=== PATIENT | male | born 1960 | race Caucasian/White ===

== ENCOUNTER → 2025-06-16 | Outpatient (CLI) | payer BC, OTHER, SELFPAY ==
[2025-06-16 11:23] LABS: Prostate Specific Antigen 4.85 ng/mL (0-4.00)
== END | disposition home or self-care (01) ==
LOC: COPL 08:47
PROVIDERS: PCP Internal Medicine; Referring Provider Urology; Visit Provider Urology
DX: N40.1 Benign prostatic hyperplasia with lower urinary tract symptoms (principal)
CPT/HCPCS: 36415; 84153

== ENCOUNTER → 2025-06-22 | Outpatient (BNVA) | payer BC, OTHER, SELFPAY | END | disposition home or self-care (01) | PROVIDERS: PCP Internal Medicine; Referring Provider Internal Medicine; Visit Provider Physician Assistant | DX: N40.1 Benign prostatic hyperplasia with lower urinary tract symptoms (principal); R97.20 Elevated prostate specific antigen [PSA]; N52.9 Male erectile dysfunction, unspecified; I10 Essential (primary) hypertension; Z80.42 Family history of malignant neoplasm of prostate | CPT/HCPCS: 99212; Q3014; G0463 ==